=== PATIENT | male | born 1950 | race Caucasian/White ===

== ENCOUNTER 2024-06-04 14:42 | Emergency (ER) | payer MEDICARE ==
[~2024-06-04] VITALS: Ht 177.8 cm; Wt 86.9 kg
[2024-06-04 16:45] VITALS: BP 146/75; PULSE 96; RESP 16; TEMP 97.9; O2SAT 97
== END 2024-06-04 16:47 | disposition home or self-care (01) ==
LOC: ER 14:44
DX: M54.30 Sciatica, unspecified side (principal); M19.90 Unspecified osteoarthritis, unspecified site; R20.0 Anesthesia of skin; Z98.890 Other specified postprocedural states
CPT/HCPCS: 70450; 99284